=== PATIENT | male | born 1975 | race Caucasian/White ===

== ENCOUNTER 2020-11-09 21:31 | Emergency (ER) | payer OTHER ==
[~2020-11-09] VITALS: Ht 180.3 cm; Wt 103.9 kg
== END 2020-11-10 00:22 | disposition home or self-care (01) ==
LOC: ER 21:31
DX: S61.211A Laceration without foreign body of left index finger without damage to nail, initial encounter (principal)
CPT/HCPCS: 12001; 99282-25